=== PATIENT | male | born 1980 | race Caucasian/White ===

== ENCOUNTER 2016-04-26 16:00 | Emergency (ER) | payer BC ==
[~2016-04-26] VITALS: Ht 190.5 cm; Wt 138.3 kg
[2016-04-26] MEDS ORDERED: PRINIVIL2.5 MG PO (19:58)
[2016-04-26] MEDS ORDERED: ZEBETA5 MG PO (19:59)
== END 2016-04-26 19:17 | disposition short-term general hospital (02) ==
LOC: ER 16:00
DX: R10.84 Generalized abdominal pain (principal); R19.7 Diarrhea, unspecified; R42 Dizziness and giddiness; I10 Essential (primary) hypertension; Z88.8 Allergy status to other drugs, medicaments and biological substances; Z79.899 Other long term (current) drug therapy; Z98.890 Other specified postprocedural states
CPT/HCPCS: Q9963; Q9967